=== PATIENT | female | born 1955 ===

== ENCOUNTER 2018-03-17 08:49 | Day surgery (SDC) | payer OTHER, SELFPAY ==
[2018-03-17 11:13] VITALS: BMI 25.7
[2018-03-17] MEDS ORDERED: Lactated Ringer's 1,000 ML IV ONE (11:15)
[2018-03-17] MEDS ORDERED: Propofol 10 mg/ml Inj (20 ML) ONE (12:05)
[2018-03-17 12:37] VITALS: TEMP 96.8
[2018-03-17 12:51] VITALS: BP 100/60; PULSE 68; RESP 17; O2SAT 99
== END 2018-03-17 13:25 | disposition home or self-care (01) ==
LOC: H.ENDO 08:49
PROVIDERS: ATTEND Internal Medicine Gastroenterology
DX: K92.2 Gastrointestinal hemorrhage, unspecified (principal); K64.8 Other hemorrhoids
CPT/HCPCS: 45378; J2001; J2704; J7120